=== PATIENT | male | born 1960 | race Caucasian/White ===

== ENCOUNTER → 2017-02-24 | Outpatient (CLI) | payer BC ==
--- NOTE | 2017-02-24 11:56 | PCVCIMAG ---
APPROVED REPORT Study performed: 02/24/2017 09:06:22 EXAM: Comprehensive 2D, Doppler, and color-flow Echocardiogram Patient Location: Echo lab Status: routine BSA: 2.08 HR: 67 bpm Rhythm: NSR Other Information Study Quality: Good Indications Hypertension/HDD 2D Dimensions RVDd: 28.98 mmLVEF(%): 50.74 (>50%) IVSd: 13.19 (7-11mm)LVOT Diam: 21.54 (18-24mm) LVDd: 44.16 mm PWd: 10.95 (7-11mm)Ascending Ao: 28.52 (22-36mm) LVDs: 32.82 (25-40mm) Left Atrium: 33.61 (27-40mm) Aortic Root: 30.59 mm LV Single Plane 4CH: 53.94 % LV Single Plane 2CH: 60.84 %Tong's LVEF: 57.39 % Biplane EF: 55.0 % Volumes Left Atrial Volume (Systole) Single Plane 4CH: 26.70 mLSingle Plane 2CH: 27.75 mL LA ESV Index: 14.00 mL/m2 Aortic Valve AoV Peak Joaquim.: 1.36 m/s AO Peak Gr.: 7.36 mmHgLVOT Max P.11 mmHg LVOT Max V: 1.01 m/s ROSI Vmax: 2.72 cm2 Mitral Valve E/A Ratio: 1.1 MV Decel. Time: 207.82 ms MV E Max Joaquim.: 0.67 m/s MV A Joaquim.: 0.59 m/s MV PHT: 60.27 ms IVRT: 121.11 ms TDI E/Lateral E': 8.38E/Medial E': 8.38 Medial E' Joaquim.: 0.08 m/s Lateral E' Joaquim.: 0.08 m/s Pulmonary Valve PV Peak Gr.: 3.01 mmHg Pulmonary Vein P Vein S: 0.49 m/sP Vein A: 0.43 m/s P Vein D: 0.48 m/sP Vein A Dur.: 72.7 msec P Vein S/D Ratio: 1.02 Tricuspid Valve TR Peak Joaquim.: 2.14 m/s TR Peak Gr.: 18.25 mmHg Left Ventricle The left ventricle is normal size. There is normal LV segmental wall motion. There is borderline incr left ventricular wall thickness. Left ventricular systolic function is normal. The left ventricular ejection fraction is within the normal range. LVEF is 60-65%. The left ventricular diastolic function is normal. Right Ventricle The right ventricle is normal size. The right ventricular systolic function is normal. Atria The left atrium size is normal. The right atrium size is normal. Aortic Valve The aortic valve is normal in structure. No aortic regurgitation is present. There is no aortic valvular stenosis. Mitral Valve The mitral valve is normal in structure. Trace mitral regurgitation. No evidence of mitral valve stenosis. Tricuspid Valve The tricuspid valve is normal in structure. Trace tricuspid regurgitation. Pulmonary artery pressure is 26mmhg. Pulmonic Valve The pulmonary valve is normal in structure. Trace pulmonic regurgitation. Great Vessels The aortic root is normal in size. IVC is normal in size and collapses with >50% inspiration Pericardium There is no pericardial effusion. <Conclusion> The left ventricle is normal size. There is borderline incr left ventricular wall thickness. LVEF is 60-65%. The right ventricular systolic function is normal. The left atrium size is normal. The aortic valve is normal in structure. There is no aortic valvular stenosis. Trace mitral regurgitation. Trace tricuspid regurgitation. Pulmonary artery pressure is 26mmhg. There is no pericardial effusion.
== END | disposition home or self-care (01) ==
LOC: PCVCIMAG 08:50
PROVIDERS: ATTEND Internal Medicine Cardiovascular Disease
DX: I10 Essential (primary) hypertension (principal); E78.5 Hyperlipidemia, unspecified; E80.4 Gilbert syndrome; N40.0 Benign prostatic hyperplasia without lower urinary tract symptoms; J30.2 Other seasonal allergic rhinitis; I51.7 Cardiomegaly; R94.31 Abnormal electrocardiogram [ECG] [EKG]
CPT/HCPCS: 80061; 93005; 93306